=== PATIENT | female | born 1955 | race Caucasian/White ===

== ENCOUNTER 2017-04-14 21:29 | Emergency (ER) | payer BC ==
[~2017-04-14] VITALS: Ht 172.7 cm; Wt 85.7 kg
[~2017-04-14 21:29] MED LIST: CLOR7.5T43 PO; SERT100T PO
[2017-04-14 22:00] LABS: BASO % 1 % (0-3); EOS % 3 % (0-3); HEMATOCRIT 37.9 % (36.0-47.0); HEMOGLOBIN 13.1 g/dL (12.0-15.5); LYMPH # 2.4 x10^3/uL (1.0-4.8); LYMPH % 51 % (24-48); MEAN CORPUSCULAR HEMOGLOBIN 34 pg (25-35); MEAN CORPUSCULAR HGB CONC 35 g/dL (31-37); MEAN CORPUSCULAR VOLUME 100 fL (79-100); MONO % 12 % (0-9); NEUT % 34 % (31-73); PLATELET COUNT 209 x10^3/uL (140-400); RED BLOOD COUNT 3.81 x10^6/uL (3.50-5.40); RED CELL DISTRIBUTION WIDTH 12.2 % (11.5-14.5); WHITE BLOOD COUNT 4.7 x10^3/uL (4.0-11.0)
[2017-04-14] MEDS ORDERED: NITROGLYCERIN SUBLINGUAL 0.4 MG BOTTLE OF 25. SL PRN (22:00)
[2017-04-14] MEDS ORDERED: ASPIRIN CHEWABLE 81 MG TABLET. PO ONE (22:00)
[2017-04-14] MEDS ORDERED: fentaNYL PF VIAL 100 MCG/2 ML VIAL IV PRN (22:00)
[2017-04-14 22:13] LABS: CREATININE 0.9 mg/dL (0.6-1.0); GFR 63.9; POTASSIUM 3.8 mmol/L (3.5-5.1)
[2017-04-14 22:19] LABS: ALBUMIN 4.1 g/dL (3.4-5.0); DIRECT BILIRUBIN 0.1 mg/dL (0.0-0.2); TOTAL BILIRUBIN 0.2 mg/dL (0.2-1.0); TOTAL PROTEIN 7.3 g/dL (6.4-8.2)
[2017-04-14 23:35] LABS: BARBITURATES NEG (NEG); BENZODIAZEPINES NEG (NEG); CANNABINOIDS NEG (NEG); COCAINE NEG (NEG); METHADONE NEG (NEG); OPIATES NEG (NEG); PHENCYCLIDINE NEG (NEG)
--- NOTE | 2017-04-15 00:08 | ED.ADGEN ---
Past Medical History Past Medical History: Depression, Other Additional Past Medical Histor: MAJOR DEPPRESSIVE DISORDER Past Surgical History: Tonsillectomy Alcohol Use: Occasionally Drug Use: None Adult General Chief Complaint Chief Complaint: CHEST PAIN-CARDIAC NATURE HPI HPI Patient is a 62 year old woman, history of anxiety, depression, who was placed on propanolol in mid March due to akathisia, who presents emergency Department with complaint of chest tightness and chest pressure since this morning. Patient states that she's had this symptom previously, but has not previously sought evaluation. She states that she had a cardiac evaluation including a stress test 10 years ago, has not seen a pr intern since that time. She denies any family history of cardiac disease, states that she follow up with Dr. Javier, and that her psychiatrist put her on propanolol several weeks ago, which she has been taking along with other medications as directed. She denies any suicidal homicidal ideation, states that she began experiencing the pain described as a pressure earlier this morning it is been constant since that time. She states she became more worried about the pain as the time went on. She states that she is not having some pain in her upper back. Denies any shortness of breath, any diaphoresis, states she had one episode of nausea after taking her plantar law, which she states is typical after taking this medication. She denies any weakness, any numbness, states that she had some tingling in her fingertips, which again to 70 she expresses with taking propanolol. No headache, no vision changes, no near-syncope or syncopal event. No swelling extremities, no recent travel or surgery, history of DVT or PE in herself or family members. Patient states that she took a Klonopin shortly before coming to the ED, and is now feeling better. Review of Systems Review of Systems Constitutional: Denies fever or chills. [] Eyes: Denies change in visual acuity. [] HENT: Denies nasal congestion or sore throat. [] Respiratory: Denies cough or shortness of breath. [] Cardiovascular: Midsternal chest pressure, no edema, pain is now in the mid back. GI: Denies abdominal pain, nausea, vomiting, bloody stools or diarrhea. [] : Denies dysuria. [] Musculoskeletal: Denies back pain or joint pain. [] Integument: Denies rash. [] Neurologic: Denies headache, focal weakness or sensory changes. [] Endocrine: Denies polyuria or polydipsia. [] Lymphatic: Denies swollen glands. [] Psychiatric: Denies depression or anxiety. [] Current Medications Current Medications Current Medications Medications (Trade) Dose Ordered Sig/Sudeep Start Time Stop Time Status Last Admin Dose Admin Aspirin (Children'S Aspirin) 324 mg 1X ONCE 04/14/17 22:00 04/14/17 22:01 DC 04/14/17 22:47 324 MG Fentanyl Citrate (Fentanyl 2ml Vial) 25 mcg PRN Q15MIN PRN 04/14/17 22:00 04/15/17 01:02 DC Nitroglycerin (Nitrostat) 0.4 mg PRN Q5MIN PRN 04/14/17 22:00 04/15/17 01:02 DC Allergies Allergies Allergies Coded Allergies Type Severity Reaction Last Updated Verified Sulfa (Sulfonamide Antibiotics) Allergy Unknown Hives 04/07/14 Yes Physical Exam Physical Exam Constitutional: Well developed, well nourished, no acute distress, non-toxic appearance. [] HENT: Normocephalic, atraumatic, bilateral external ears normal, oropharynx moist, no oral exudates, nose normal. [] Eyes: PERRLA, EOMI, conjunctiva normal, no discharge. [] Neck: Normal range of motion, no tenderness, supple, no stridor. [] Cardiovascular:Heart rate regular rhythm, no murmur [] Lungs & Thorax: Bilateral breath sounds clear to auscultation [] Abdomen: Bowel sounds normal, soft, no tenderness, no masses, no pulsatile masses. [] Skin: Warm, dry, no erythema, no rash. [] Back: No tenderness, no CVA tenderness. [] Extremities: No tenderness, no cyanosis, no clubbing, ROM intact, no edema. [] Neurologic: Alert and oriented X 3, normal motor function, normal sensory function, no focal deficits noted. [] Psychologic: Affect normal, judgement normal, mood normal. [] Current Patient Data Vital Signs Vital Signs Date Time Temp Pulse Resp B/P (MAP) Pulse Ox O2 Delivery O2 Flow Rate FiO2 04/15/17 00:30 73 18 118/70 (86) 97 Room Air 04/14/17 21:33 98.0 98.0 Lab Values Laboratory Tests Test 04/14/17 21:45 04/14/17 23:15 04/14/17 23:40 White Blood Count 4.7 x10^3/uL (4.0-11.0) Red Blood Count 3.81 x10^6/uL (3.50-5.40) Hemoglobin 13.1 g/dL (12.0-15.5) Hematocrit 37.9 % (36.0-47.0) Mean Corpuscular Volume 100 fL (79-100) Mean Corpuscular Hemoglobin 34 pg (25-35) Mean Corpuscular Hemoglobin Concent 35 g/dL (31-37) Red Cell Distribution Width 12.2 % (11.5-14.5) Platelet Count 209 x10^3/uL (140-400) Neutrophils (%) (Auto) 34 % (31-73) Lymphocytes (%) (Auto) 51 % (24-48) H Monocytes (%) (Auto) 12 % (0-9) H Eosinophils (%) (Auto) 3 % (0-3) Basophils (%) (Auto) 1 % (0-3) Neutrophils # (Auto) 1.6 x10^3uL (1.8-7.7) L Lymphocytes # (Auto) 2.4 x10^3/uL (1.0-4.8) Monocytes # (Auto) 0.5 x10^3/uL (0.0-1.1) Eosinophils # (Auto) 0.1 x10^3/uL (0.0-0.7) Basophils # (Auto) 0.0 x10^3/uL (0.0-0.2) Sodium Level 141 mmol/L (136-145) Potassium Level 3.8 mmol/L (3.5-5.1) Chloride Level 104 mmol/L (98-107) Carbon Dioxide Level 29 mmol/L (21-32) Anion Gap 8 (6-14) Blood Urea Nitrogen 13 mg/dL (7-20) Creatinine 0.9 mg/dL (0.6-1.0) Estimated GFR (Cockcroft-Gault) 63.9 Glucose Level 79 mg/dL (70-99) Calcium Level 9.0 mg/dL (8.5-10.1) Total Bilirubin 0.2 mg/dL (0.2-1.0) Direct Bilirubin 0.1 mg/dL (0.0-0.2) Aspartate Amino Transferase (AST) 19 U/L (15-37) Alanine Aminotransferase (ALT) 26 U/L (14-59) Alkaline Phosphatase 94 U/L (46-116) Troponin I Quantitative < 0.017 ng/mL (0.000-0.055) LC-Zxm-T-Type Natriuretic Peptide 36 pg/mL (0-124) Total Protein 7.3 g/dL (6.4-8.2) Albumin 4.1 g/dL (3.4-5.0) Lipase 144 U/L (73-393) Urine Opiates Screen Neg (NEG) Urine Methadone Screen Neg (NEG) Urine Barbiturates Neg (NEG) Urine Phencyclidine Screen Neg (NEG) Urine Amphetamine/Methamphetamine Neg (NEG) Urine Benzodiazepines Screen Neg (NEG) Urine Cocaine Screen Neg (NEG) Urine Cannabinoids Screen Neg (NEG) Urine Ethyl Alcohol Neg (NEG) POC Troponin I 0.00 ng/ml (<0.08) Laboratory Tests 04/14/17 21:45 Laboratory Tests 04/14/17 21:45 EKG EKG EC: Sinus rhythm, heart rate 70 beats minute, upright axis, QTC of 407, [place] 160, QRS of 84, contour abnormalities is noted in the anterior septal leads, T-wave inversions noted in leads 3 and flattening in V2. Abnormal ECG, does not meet STEMI criteria. No prior for comparison. As interpreted by me. [] Radiology/Procedures Radiology/Procedures Chest x-ray: One view: Normal cardiopulmonary silhouette, no infiltrates, no effusions, no pneumothorax, no soft tissue or bony abnormalities identified. As interpreted by me. [] Course & Med Decision Making Course & Med Decision Making Pertinent Labs and Imaging studies reviewed. (See chart for details) Patient's pain is been constant since early this morning. She states that is currently located in her back, states that it is now "not really a pain" since she took the Klonopin, more of a "tightness", located in her mid upper back. She denies any associated symptoms, aside from an episode of nausea shortly after taking propranolol this morning, she states is consistent with every time states the medication. Patient is agreeable to evaluation in the emergency department, including x-ray, ECG, laboratory studies. Patient states that she will not be able to stay and be admitted to the hospital for additional evaluation, as she has "things any to do". On reevaluation, after receiving aspirin, patient states she is feeling much better. She states she is no longer expressing any pain. I discussed patient's laboratory studies, she has received an initial troponin was negative, and then a secondary i-STAT troponin in the ED , after 2 hours of observation was also unremarkable. No other concerning findings were identified. I did discuss with her that her ECG is not entirely normal, and that I do recommend admission for additional evaluation, as I cannot rule out atypical chest pain of cardiac nature, however patient states that she is still unable to stay, and after discussion states she will be able to follow-up promptly in the outpatient setting. Patient was therefore given contact information for Dr. Fuller of cardiology, and instructed to contact his office tomorrow morning to schedule prompt follow-up. She was also given clear and detailed return instructions with which she voiced understanding and agreement. Instructed to use aspirin daily, to follow-up as directed, to return for concerning symptoms as discussed, discharged home in stable condition, asymptomatic with plan as above. Dragon Disclaimer Dragon Disclaimer This electronic medical record was generated, in whole or in part, using a voice recognition dictation system. Departure Impression: Primary Impression: Chest pain in adult Disposition: 01 HOME, SELF-CARE Condition: IMPROVED LEIF BARNHART DO Apr 15, 2017 00:08
[2017-04-15 00:30] VITALS: BP 118/70
--- NOTE | 2017-04-15 06:08 | EKG ---
[facility] [address] [place] [address] Test Date: 2017-04-14 Test Time: 21:36:16 Pat Name: SANTOSH WANG Department: Room: Gender: F Mill Hand: : 1955 Requested By: LEIF BARNHART Order Number: [id number] Reading MD: Measurements Intervals [place] Rate: 70 P: 83 [place]: 160 QRS: 30 QRSD: 84 T: 38 QT: 374 QTc: 407 Interpretive Statements SINUS RHYTHM QRS(T) CONTOUR ABNORMALITY CONSIDER ANTEROSEPTAL MYOCARDIAL DAMAGE RI6.01 Unconfirmed report No previous ECG available for comparison
--- NOTE | 2017-04-15 08:07 | RAD ---
Indication tightness in the chest. PA and lateral views of the chest were obtained. Comparison is made to a previous examination 09/23/2012. There are background changes suggesting emphysema. The lungs are clear of acute infiltrates. Significant pleural fluid is not seen and there is no pneumothorax. There has not been, overall, a significant change when compared to the previous exam. IMPRESSION: No acute or focal process. No significant change
== END 2017-04-15 00:40 | disposition home or self-care (01) ==
LOC: ER 21:29
DX: R07.89 Other chest pain (principal); M54.6 Pain in thoracic spine; R11.0 Nausea; F32.9 Major depressive disorder, single episode, unspecified; F41.9 Anxiety disorder, unspecified; Z79.82 Long term (current) use of aspirin; Z88.2 Allergy status to sulfonamides
CPT/HCPCS: 36415; 71020; 80048; 80076; 80305; 80320; 83690; 83880; 84484; 85027; 93005; G0481; 99285-25

== ENCOUNTER 2017-12-05 02:34 | Emergency (ER) | payer OTHER, BC | END 2017-12-05 03:25 | disposition home or self-care (01) | LOC: ER 02:34 | DX: T50.901A Poisoning by unspecified drugs, medicaments and biological substances, accidental (unintentional), initial encounter (principal); F41.0 Panic disorder [episodic paroxysmal anxiety]; F32.9 Major depressive disorder, single episode, unspecified; Z88.2 Allergy status to sulfonamides; Y92.89 Other specified places as the place of occurrence of the external cause | CPT/HCPCS: 93005; 99283-25 ==

== ENCOUNTER 2018-01-31 04:03 | Emergency (ER) | payer OTHER ==
[2018-01-31 05:09] LABS: ADD MAN DIFF? NO
[2018-01-31 05:20] LABS: BASO # 0.1 x10^3/uL (0.0-0.2); BASO % 1 % (0-3); EOS # 0.2 x10^3/uL (0.0-0.7); EOS % 4 % (0-3); HEMATOCRIT 41.5 % (36.0-47.0); HEMOGLOBIN 14.7 g/dL (12.0-15.5); LYMPH % 46 % (24-48); MEAN CORPUSCULAR HEMOGLOBIN 35 pg (25-35); MEAN CORPUSCULAR HGB CONC 35 g/dL (31-37); MEAN CORPUSCULAR VOLUME 100 fL (79-100); MONO # 0.5 x10^3/uL (0.0-1.1); MONO % 12 % (0-9); NEUT # 1.6 x10^3uL (1.8-7.7); NEUT % 37 % (31-73); PLATELET COUNT 228 x10^3/uL (140-400); RED BLOOD COUNT 4.17 x10^6/uL (3.50-5.40); WHITE BLOOD COUNT 4.3 x10^3/uL (4.0-11.0)
[2018-01-31 05:22] LABS: BILIRUBIN,URINE NEGATIVE (NEG); CLARITY,URINE CLEAR; COLOR,URINE YELLOW; GLUCOSE,URINE NEGATIVE (NEG); NITRITE,URINE NEGATIVE (NEG); PH,URINE 6.5; PROTEIN,URINE NEGATIVE (NEG-TRACE); UROBILINOGEN,URINE 0.2 mg/dL (0.2 mg/dL)
[2018-01-31 05:23] LABS: SQUAMOUS EPITHELIAL CELL,UR FEW /LPF
[2018-01-31 05:24] LABS: BACTERIA,URINE FEW /HPF (0-FEW)
[2018-01-31 05:27] LABS: ANION GAP 10 (6-14); BLOOD UREA NITROGEN 10 mg/dL (7-20); BUN/CREATININE RATIO 10 (6-20); CARBON DIOXIDE 28 mmol/L (21-32); CHLORIDE 104 mmol/L (98-107); GFR 56.6; GLUCOSE 102 mg/dL (70-99); POTASSIUM 3.9 mmol/L (3.5-5.1); SODIUM 142 mmol/L (136-145)
[2018-01-31 05:32] LABS: ALBUMIN 4.3 g/dL (3.4-5.0); ALBUMIN/GLOBULIN RATIO 1.3 (1.0-1.7); ALK PHOS 107 U/L (46-116); ALT (SGPT) 27 U/L (14-59); AST (SGOT) 20 U/L (15-37); LIPASE 158 U/L (73-393); TOTAL BILIRUBIN 0.4 mg/dL (0.2-1.0); TOTAL PROTEIN 7.5 g/dL (6.4-8.2)
[2018-01-31 05:35] LABS: TROPONINI < 0.017 ng/mL (0.000-0.055)
== END 2018-01-31 06:38 | disposition home or self-care (01) ==
LOC: ER 04:03
DX: R07.89 Other chest pain (principal); R42 Dizziness and giddiness; K21.9 Gastro-esophageal reflux disease without esophagitis; Z88.2 Allergy status to sulfonamides
CPT/HCPCS: 36415; 71045; 80053; 81001; 83690; 84484; 85025; 87086; 93005; 99285-25

== ENCOUNTER 2019-06-28 23:23 | Emergency (ER) | payer OTHER ==
[~2019-06-28] VITALS: Ht 170.2 cm; Wt 63.0 kg
--- NOTE | 2019-06-29 00:08 | PHYS DOC ---
Past Medical History Past Medical History: Depression, Other Additional Past Medical Histor: MAJOR DEPPRESSIVE DISORDER Past Surgical History: Tonsillectomy Alcohol Use: Occasionally Drug Use: None Adult General Chief Complaint Chief Complaint: ALLERGIC REACTION HPI HPI Patient is a 64 year old female who presents stating that she was at [employer] around 3:00 this afternoon and her back started itching and feeling like it was on fire. She then states that around 7:00 this evening she started feeling like her throat was swelling. Denies any pain, denies shortness of breath, denies any other complaints. Review of Systems Review of Systems Constitutional: Denies fever or chills [] Eyes: Denies change in visual acuity, redness, or eye pain [] HENT: Denies nasal congestion or sore throat [] Respiratory: Denies cough or shortness of breath [] Cardiovascular: No additional information not addressed in HPI [] GI: Denies abdominal pain, nausea, vomiting, bloody stools or diarrhea [] : Denies dysuria or hematuria [] Musculoskeletal: Denies back pain or joint pain [] Integument: Reports her back is itching. Neurologic: Denies headache, focal weakness or sensory changes [] Endocrine: Denies polyuria or polydipsia [] Complete systems were reviewed and found to be within normal limits, except as documented in this note. Allergies Allergies Allergies Coded Allergies Type Severity Reaction Last Updated Verified Sulfa (Sulfonamide Antibiotics) Allergy Unknown Hives 04/07/14 Yes Physical Exam Physical Exam Constitutional: Well developed, well nourished, no acute distress, non-toxic appearance. [] HENT: Normocephalic, atraumatic, bilateral external ears normal, oropharynx moist, no oral exudates, tonsils are 1+/4, uvula midline, nose normal. [] Eyes: PERRLA, EOMI, conjunctiva normal, no discharge. [] Neck: Normal range of motion, no tenderness, supple, no stridor. [] Cardiovascular:Heart rate regular rhythm, no murmur [] Lungs & Thorax: Bilateral breath sounds clear to auscultation [] Abdomen: Bowel sounds normal, soft, no tenderness, no masses, no pulsatile masses. [] Skin: Warm, dry, no erythema, has area on her back that she has scratched with a hair brush.[] Back: No tenderness, no CVA tenderness. [] Extremities: No tenderness, no cyanosis, no clubbing, ROM intact, no edema. [] Neurologic: Alert and oriented X 3, normal motor function, normal sensory function, no focal deficits noted. [] Psychologic: Affect normal, judgement normal, mood normal. [] EKG EKG [] Radiology/Procedures Radiology/Procedures [] Course & Med Decision Making Course & Med Decision Making Pertinent Labs and Imaging studies reviewed. (See chart for details) Will give Benadryl, Pepcid, and Decadron and D/c home. Dragon Disclaimer Dragon Disclaimer This electronic medical record was generated, in whole or in part, using a voice recognition dictation system. Departure Departure Impression: Primary Impression: Itching Disposition: HOME, SELF-CARE Condition: STABLE Referrals: VINCE TAVERAS MD (PCP) Patient Instructions: Itching-Brief Additional Instructions: Thank you for visiting [facility]. We appreciate you trusting us with your care. If any additional problems come up don't hesitate to return to visit us. Please follow up with your primary care provider so they can plan additional care if needed and know about the problem that you had. If symptoms worsen come back to the Emergency Department. Any concerning symptoms that start such as chest pain, shortness of air, weakness or numbness on one side of the body, running high fevers or any other concerning symptoms return to the ER. JENNIFER ROME APRN Jun 29, 2019 00:08
[2019-06-29 00:27] VITALS: BP 111/69
[2019-06-29] MEDS ORDERED: diphenhydrAMINE HCL 25 MG CAPSULE PO ONE (00:30)
[2019-06-29] MEDS ORDERED: FAMOTIDINE 20 MG TABLET. PO ONE (00:30)
[2019-06-29] MEDS ORDERED: DEXAMETHASONE 4 MG TABLET PO ONE (00:30)
== END 2019-06-29 00:17 | disposition home or self-care (01) ==
LOC: ER 23:23
DX: L29.9 Pruritus, unspecified (principal); F32.9 Major depressive disorder, single episode, unspecified; Z90.89 Acquired absence of other organs; Z88.2 Allergy status to sulfonamides
CPT/HCPCS: 99284; J8540; Q0163

== ENCOUNTER 2020-06-07 08:31 | Emergency (ER) | payer OTHER ==
[~2020-06-07] VITALS: Ht 170.2 cm; Wt 70.5 kg
[2020-06-07 09:09] LABS: BASO % 1 % (0-3); EOS # 0.1 x10^3/uL (0.0-0.7); EOS % 1 % (0-3); HEMATOCRIT 37.5 % (36.0-47.0); LYMPH % 17 % (24-48); MEAN CORPUSCULAR HEMOGLOBIN 35 pg (25-35); MEAN CORPUSCULAR HGB CONC 35 g/dL (31-37); MEAN CORPUSCULAR VOLUME 101 fL (79-100); MONO # 0.5 x10^3/uL (0.0-1.1); MONO % 8 % (0-9); NEUT # 4.6 x10^3/uL (1.8-7.7); NEUT % 74 % (31-73); PLATELET COUNT 206 x10^3/uL (140-400); RED BLOOD COUNT 3.72 x10^6/uL (3.50-5.40); RED CELL DISTRIBUTION WIDTH 12.4 % (11.5-14.5); WHITE BLOOD COUNT 6.2 x10^3/uL (4.0-11.0)
[2020-06-07 09:12] LABS: BILIRUBIN,URINE NEGATIVE (NEG); CLARITY,URINE CLEAR; COLOR,URINE YELLOW; NITRITE,URINE NEGATIVE (NEG); PROTEIN,URINE NEGATIVE (NEG-TRACE); UROBILINOGEN,URINE 0.2 mg/dL (0.2 mg/dL)
[2020-06-07] MEDS ORDERED: IV NORMAL SALINE 1000ML BAG 1,000 ML IV ONE (09:15)
[2020-06-07 09:21] LABS: PROTHROMBIN TIME PATIENT 12.4 SEC (11.7-14.0)
[2020-06-07 09:23] LABS: CALCIUM 9.1 mg/dL (8.5-10.1); POTASSIUM 3.1 mmol/L (3.5-5.1)
[2020-06-07 09:26] LABS: BACTERIA,URINE 0 /HPF (0-FEW); RBC,URINE 0 /HPF (0-2); SQUAMOUS EPITHELIAL CELL,UR OCC /LPF; WBC,URINE RARE /HPF (0-4)
--- NOTE | 2020-06-07 09:27 | PHYS DOC ---
Past Medical History Past Medical History: Depression, GERD, Other Additional Past Medical Histor: MAJOR DEPPRESSIVE DISORDER Past Surgical History: Tonsillectomy Smoking Status: Never Smoker Alcohol Use: Occasionally Drug Use: None General Adult EDM: Chief Complaint: ABDOMINAL PAIN HPI: HPI: 65-year-old female presents the emergency department for abdominal pain that began at 10:00 last night. There is nothing that brought on the event, no trauma, not associate with any food, not associated with urination or defecation. The patient has had a sudden onset of pain in the lower left quadrant that radiates to her left flank. The area is not tender upon palpation, but the patient describes the pain as a constant pressure. Also patient states that the pain is intermittent in nature. The patient was able to sleep through the night without issues but did wake up at 530 this morning with worse pain in the left lower quadrant. She rates the pain at 6 out of 10. In the emergency department right now it is currently minimally painful in the left lower quadrant. The patient does have chronic gastritis which has had for 3 years and she follows up with a GI specialist and her family medicine doctor. She has not taken any medication for the pain. She has not found anything that makes the pain worse or alleviates the pain. She has not experienced pain in this area before with this type of presentation. Review of Systems: Review of Systems: Constitutional: Denies fever or chills Eyes: Denies redness or eye pain HENT: Denies nasal congestion or sore throat Respiratory: Denies cough or shortness of breath Cardiovascular: Denies chest pain or palpitations GI: Denies nausea, or vomiting. Reports lower left quadrant abdominal pain : Denies dysuria or hematuria Musculoskeletal: Denies back pain or joint pain Integument: Denies rash or skin lesions Neurologic: Denies headache, focal weakness or sensory changes Complete systems were reviewed and found to be within normal limits, except as documented in this note. Current Medications: Current Medications Medications (Trade) Dose Ordered Sig/Sudeep Start Time Stop Time Status Last Admin Dose Admin Sodium Chloride 1,000 ml @ 1,000 mls/hr 1X ONCE 06/07/20 09:15 06/07/20 10:14 06/07/20 09:15 1,000 MLS/HR Allergies: Allergies: Allergies Coded Allergies Type Severity Reaction Last Updated Verified Sulfa (Sulfonamide Antibiotics) Allergy Intermediate Hives 06/29/19 Yes Physical Exam: PE: Constitutional: Well developed, well nourished, no acute distress, non-toxic appearance HENT: Normocephalic, atraumatic Eyes: PERRL, EOMI, conjunctiva normal, no discharge Neck: Normal range of motion, no tenderness, supple Lungs & Thorax: Bilateral equal rise and fall of chest. No acute respiratory distress Abdomen: Soft, no tenderness. No bruising or erythema noted Skin: Warm, dry, no erythema, no rash Back: No tenderness, no CVA tenderness Extremities: No tenderness, ROM intact, no edema Neurologic: Alert and oriented X 3, normal motor function, normal sensory function, no focal deficits noted Psychologic: Affect normal, judgment normal Current Patient Data: Labs: Laboratory Tests Test 06/07/20 08:55 White Blood Count 6.2 x10^3/uL (4.0-11.0) Red Blood Count 3.72 x10^6/uL (3.50-5.40) Hemoglobin 13.0 g/dL (12.0-15.5) Hematocrit 37.5 % (36.0-47.0) Mean Corpuscular Volume 101 fL (79-100) H Mean Corpuscular Hemoglobin 35 pg (25-35) Mean Corpuscular Hemoglobin Concent 35 g/dL (31-37) Red Cell Distribution Width 12.4 % (11.5-14.5) Platelet Count 206 x10^3/uL (140-400) Neutrophils (%) (Auto) 74 % (31-73) H Lymphocytes (%) (Auto) 17 % (24-48) L Monocytes (%) (Auto) 8 % (0-9) Eosinophils (%) (Auto) 1 % (0-3) Basophils (%) (Auto) 1 % (0-3) Neutrophils # (Auto) 4.6 x10^3/uL (1.8-7.7) Lymphocytes # (Auto) 1.0 x10^3/uL (1.0-4.8) Monocytes # (Auto) 0.5 x10^3/uL (0.0-1.1) Eosinophils # (Auto) 0.1 x10^3/uL (0.0-0.7) Basophils # (Auto) 0.0 x10^3/uL (0.0-0.2) Laboratory Tests 06/07/20 08:55 Vital Signs: Vital Signs Date Time Temp Pulse Resp B/P (MAP) Pulse Ox O2 Delivery O2 Flow Rate FiO2 06/07/20 08:50 98.4 87 16 129/78 (95) 100 Room Air 98.4 EKG: EKG: [] Radiology/Procedures: Radiology/Procedures: Examination: CT of the abdomen pelvis with IV contrast HISTORY: History of left lower quadrant abdominal pain COMPARISON: None available Technique: Axial CT images of the abdomen pelvis were performed with IV contrast. Coronal and sagittal reformats are performed Exposure: One or more of the following individualized dose reduction techniques were utilized for this examination: 1. Automated exposure control 2. Adjustment of the mA and/or kV according to patient size 3. Use of iterative reconstruction technique FINDINGS: The bibasilar lungs are clear. No evidence of free air identified in the abdomen. The visualized liver, spleen, adrenals grossly appears unremarkable. The gallbladder is mildly distended. The stomach is mildly distended. The visualized pancreas grossly appears unremarkable. The small bowel is nondilated. The appendix is normal. Feces and gas noted in the colon. There is mild thickened appearance of the wall of the descending colon with minimal surrounding fat stranding probably mild colitis. The urinary bladder is mildly distended. The bilateral kidneys enhance symmetrically. Mild degenerative changes lumbar spine IMPRESSION: 1. Mild thickened appearance of the wall of the descending colon with surrounding fat stranding likely mild colitis. Electronically signed by: Bradley Singh MD (06/07/2020 10:06 AM) [id number] Course & Med Decision Making: Course & Med Decision Making 65-year-old female presents the emergency department for left lower quadrant elevate having it at 10:00 last night. The pain began to worsen at 5:30 AM today. She drove to the emergency department today because she was worried about her abdominal pain and the constipation she is to the left lower quadrant. She is on omeprazole as well as sucralfate for her gastritis. She recently began superficially and increase her dose of omeprazole. Patient has no past medical history of diverticulitis or other abdominal surgeries. Patient physical exam was benign, with no tenderness to palpation of the left lower quadrant or left lower flank. Because of presentation of pain and history of chronic gastritis, lab work was done for CBC, CMP. CT of the abdomen and pelvis was also taken. Lab work came back within normal limits. CT of abdomen pelvis showed colitis in the descending colon. Results were discussed with patient. Patient was prescribed Flagyl and Cipro for her colitis. Patient is recommended to follow-up with her GI doctor in the next 3 days. Patient did not want any medication for pain or discomfort. Patient stable for discharge with outpatient follow-up with PCP. Discussed findings and plan with patient, who acknowledges understanding and agreement. Ayanna Disclaimer: Ayanna Disclaimer: This electronic medical record was generated, in whole or in part, using a voice recognition dictation system. Departure Departure Impression: Primary Impression: Colitis Disposition: HOME, SELF-CARE Condition: STABLE Referrals: VINCE TAVERAS MD (PCP) Patient Instructions: Colitis Additional Instructions: Use bland diet. Take [id number] pain medication as needed. Follow closely with your GI physician. Scripts Ciprofloxacin Hcl (CIPRO) 500 Mg Tablet 1 TAB PO BID, #14 TAB Prov: JENNIFER FOSTER DO 06/07/20 Metronidazole (FLAGYL) 500 Mg Tablet 500 MG PO TID, #21 TAB Prov: JENNIFER FOSTER DO 06/07/20 Justicifation of Admission Dx: Justifications for Admission: Justification of Admission Dx: N/A JENNIFER FOSTER DO Jun 07, 2020 09:27
[2020-06-07 09:29] LABS: ALBUMIN 4.1 g/dL (3.4-5.0); ALBUMIN/GLOBULIN RATIO 1.1 (1.0-1.7); MAGNESIUM 2.2 mg/dL (1.8-2.4); TOTAL BILIRUBIN 0.5 mg/dL (0.2-1.0); TOTAL PROTEIN 7.7 g/dL (6.4-8.2)
[2020-06-07] MEDS ORDERED: IOHEXOL 300 MG/ML 100ML VIAL. IV ONE (09:45)
[2020-06-07] MEDS ORDERED: CONTRAST GIVEN. MC PRN (09:45)
--- NOTE | 2020-06-07 10:09 | RAD ---
Examination: CT of the abdomen pelvis with IV contrast HISTORY: History of left lower quadrant abdominal pain COMPARISON: None available Technique: Axial CT images of the abdomen pelvis were performed with IV contrast. Coronal and sagittal reformats are performed Exposure: One or more of the following individualized dose reduction techniques were utilized for this examination: 1. Automated exposure control 2. Adjustment of the mA and/or kV according to patient size 3. Use of iterative reconstruction technique FINDINGS: The bibasilar lungs are clear. No evidence of free air identified in the abdomen. The visualized liver, spleen, adrenals grossly appears unremarkable. The gallbladder is mildly distended. The stomach is mildly distended. The visualized pancreas grossly appears unremarkable. The small bowel is nondilated. The appendix is normal. Feces and gas noted in the colon. There is mild thickened appearance of the wall of the descending colon with minimal surrounding fat stranding probably mild colitis. The urinary bladder is mildly distended. The bilateral kidneys enhance symmetrically. Mild degenerative changes lumbar spine IMPRESSION: 1. Mild thickened appearance of the wall of the descending colon with surrounding fat stranding likely mild colitis. Electronically signed by: Bradley Singh MD (06/07/2020 10:06 AM) [place] [id number]
[2020-06-07] MEDS ORDERED: CIPROFLOXACIN HCL 250 MG TABLET. PO ONE (10:15)
[2020-06-07] MEDS ORDERED: metroNIDAZOLE 500 MG TABLET PO ONE (10:15)
[2020-06-07 10:29] VITALS: BP 127/71
[2020-06-07] MEDS ORDERED: METR500T PO (10:40)
[2020-06-07] MEDS ORDERED: CIPR500T94 PO (10:40)
== END 2020-06-07 10:46 | disposition home or self-care (01) ==
LOC: ER 08:31
DX: K52.9 Noninfective gastroenteritis and colitis, unspecified (principal); R10.32 Left lower quadrant pain; K21.9 Gastro-esophageal reflux disease without esophagitis; F32.9 Major depressive disorder, single episode, unspecified; Z90.89 Acquired absence of other organs; Z88.2 Allergy status to sulfonamides
CPT/HCPCS: 36415; 74177; 80053; 81001; 83690; 83735; 85025; 85610; 85730; 96360; 99285; J7030; Q9967

== ENCOUNTER 2021-08-29 14:20 | Emergency (ER) | payer OTHER ==
[~2021-08-29] VITALS: Ht 170.2 cm; Wt 73.2 kg
[~2021-08-29 14:20] MED LIST changes: +CIPR500T94 PO; +METR500T PO
--- NOTE | 2021-08-29 14:53 | PHYS DOC ---
Past Medical History Past Medical History: Depression, GERD, Other Additional Past Medical Histor: MAJOR DEPPRESSIVE DISORDER Past Surgical History: Tonsillectomy Smoking Status: Never Smoker Alcohol Use: Occasionally Drug Use: None General Adult EDM: Chief Complaint: SHORTNESS OF BREATH HPI: HPI: Patient is a 66-year-old female who presents emergency department for shortness of breath that started this afternoon. Patient reports that she is unsure if this is a panic attack although her panic attacks have not been this severe. She reports that she has been fatigued all day. She denies nausea, vomiting, abdominal pain, fevers, cough symptoms sick exposure. She has experienced left- sided rib pain that is worse with movement. No treatment for her symptoms prior to arrival. Patient has a history of GERD, anxiety and depression. She is vaccinated for COVID-19. Review of Systems: Review of Systems: Constitutional: See HPI Respiratory: See HPI Cardiovascular: See HPI GI: See HPI Musculoskeletal: See HPI Neurologic: See HPI Heart Score: C/O Chest Pain: No (l. sided rib pain with movement) HEART Score for Chest Pain: HEART Score for Chest Pain Response (Comments) Value ECG Normal 0 Age >45 - < 65 1 Risk Factors No Risk Factors 0 Troponin < Normal Limit 0 Total 1 Risk Factors: Risk Factors: DM, Current or recent (<one month) smoker, HTN, HLP, family history of CAD, obesity. Risk Scores: Score 0 - 3: 2.5% MACE over next 6 weeks - Discharge Home Score 4 - 6: 20.3% MACE over next 6 weeks - Admit for Clinical Observation Score 7 - 10: 72.7% MACE over next 6 weeks - Early Invasive Strategies Allergies: Allergies: Allergies Coded Allergies Type Severity Reaction Last Updated Verified Sulfa (Sulfonamide Antibiotics) Allergy Intermediate Hives 06/29/19 Yes Physical Exam: PE: Constitutional: Well developed, well nourished, no acute distress, non-toxic appearance. [] HENT: Normocephalic, atraumatic, bilateral external ears normal, oropharynx moist, no oral exudates, nose normal. [] Eyes: PERRL, EOMI, conjunctiva normal, no discharge. [] Neck: Normal range of motion, no tenderness, supple, no stridor. [] Cardiovascular:Heart rate tachycardic rhythm, no murmur [] Lungs & Thorax: Bilateral breath sounds clear to auscultation [] Abdomen: Bowel sounds normal, soft, no tenderness, no masses, no pulsatile masses. [] Skin: Warm, dry, no erythema, no rash. [] Back: normal ROM Extremities: No tenderness, no cyanosis, no clubbing, ROM intact, no edema. [] Neurologic: Alert and oriented X 3, normal motor function, normal sensory function, no focal deficits noted. [] Psychologic: Affect normal, judgement normal, mood normal. [] EKG: EKG: [] EKG performed by ER staff at 1449 shows sinus tachycardia with a rate of 102, QTc of 513, no STEMI read by Dr. Abdullahi at 1451. Radiology/Procedures: Radiology/Procedures: []PROCEDURE: PORTABLE CHEST 1V EXAMINATION: Chest radiograph. VIEWS: Single AP view of the chest COMPARISON: 01/31/2018 INDICATION:66 years, Female, shortness of air. FINDINGS: Normal cardiomediastinal silhouette. No focal consolidation. No pleural effusion or pneumothorax. No acute osseous process. IMPRESSION: No acute cardiopulmonary process. Electronically signed by: Balwinder Nichols DO (08/29/2021 3:10 PM) [facility] DICTATED and SIGNED BY: BALWINDER NICHOLS DO DATE: 08/29/21 [id number] 0 Course & Med Decision Making: Course & Med Decision Making Pertinent Labs and Imaging studies reviewed. (See chart for details) [] Patient presents to the emergency department for shortness of breath that started this. Work-up in the ER consisted of blood work, EKG, chest x-ray. Blood work unremarkable, negative D-dimer, negative troponin. Patient's heart rate has improved to 87 bpm. VSS, patient is non labored. Chest x-ray unremarkable. Patient is Covid test in the ER was notified of the results may become available. Patient advised to self isolate until she receives his results. I discussed with patient all findings and diagnostic testing as well as the need to follow-up with PCP for further evaluation and treatment or return to the ER if any new or worsening symptoms. Strict return precautions were also discussed at length. Patient voiced understanding and agreement with the plan. Patient is hemodynamically stable at the time of disposition. Dragon Disclaimer: Ayanna Disclaimer: This electronic medical record was generated, in whole or in part, using a voice recognition dictation system. Departure Departure Impression: Primary Impression: Dyspnea Qualified Codes: R06.00 - Dyspnea, unspecified Additional Impression: Person under investigation for COVID-19 Disposition: HOME / SELF CARE / HOMELESS Condition: GOOD Referrals: VINCE TAVERAS MD (PCP) Patient Instructions: Shortness of Breath Additional Instructions: You were seen in the emergency department for shortness of breath and fatigue. Your blood work was unremarkable. Your chest x-ray showed no acute findings. You are tested for COVID-19 in the emergency department and will be notified of those results when they become available in approximately 2 days. Please self isolate until you receive these results. It is possible that your shortness of breath is due to anxiety, follow-up with your primary care provider regarding medical management of your anxiety. I would advise you to contact your primary care provider upon discharge to set up a follow-up appointment for tomorrow. Your shortness of breath may be improved by the use of an albuterol inhaler, you being discharged home with a prescription for an albuterol inhaler, use this as directed. Return to the emergency department if you develop worsening of your shortness of breath, chest pain, intractable nausea or vomiting, high fevers refractory to treatment, dizziness or lightheadedness or any new or worsening concerns. Scripts Albuterol Sulfate (Proair Hfa) 8.5 Gm Hfa.aer.ad 2 PUFF IH PRN Q4-6HRS PRN for wheezing for 21 Days, #1 INHALER 0 Refills Prov: BRAIN YOUNG APRN 08/29/21 BRAIN YOUNG APRN Aug 29, 2021 14:53
--- NOTE | 2021-08-29 15:12 | RAD ---
EXAMINATION: Chest radiograph. VIEWS: Single AP view of the chest COMPARISON: 01/31/2018 INDICATION:66 years, Female, shortness of air. FINDINGS: Normal cardiomediastinal silhouette. No focal consolidation. No pleural effusion or pneumothorax. No acute osseous process. IMPRESSION: No acute cardiopulmonary process. Electronically signed by: Benji Nichols DO (08/29/2021 3:10 PM) [facility]
--- NOTE | 2021-08-29 15:17 | EKG ---
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
[2021-08-29 15:24] LABS: BASO % 1 % (0-3); EOS # 0.1 x10^3/uL (0.0-0.7); EOS % 3 % (0-3); HEMATOCRIT 41.2 % (36.0-47.0); HEMOGLOBIN 14.2 g/dL (12.0-15.5); LYMPH # 1.4 x10^3/uL (1.0-4.8); LYMPH % 33 % (24-48); MEAN CORPUSCULAR HEMOGLOBIN 35 pg (25-35); MEAN CORPUSCULAR HGB CONC 35 g/dL (31-37); MEAN CORPUSCULAR VOLUME 102 fL (79-100); MONO # 0.5 x10^3/uL (0.0-1.1); MONO % 12 % (0-9); NEUT # 2.1 x10^3/uL (1.8-7.7); NEUT % 51 % (31-73); PLATELET COUNT 301 x10^3/uL (140-400); RED BLOOD COUNT 4.05 x10^6/uL (3.50-5.40); RED CELL DISTRIBUTION WIDTH 12.7 % (11.5-14.5); WHITE BLOOD COUNT 4.2 x10^3/uL (4.0-11.0)
[2021-08-29 15:30] LABS: CALCIUM 8.9 mg/dL (8.5-10.1); GFR 55.8; POTASSIUM 4.3 mmol/L (3.5-5.1)
[2021-08-29 15:37] LABS: ALBUMIN 4.2 g/dL (3.4-5.0); ALBUMIN/GLOBULIN RATIO 1.2 (1.0-1.7); TOTAL BILIRUBIN 0.2 mg/dL (0.2-1.0); TOTAL PROTEIN 7.6 g/dL (6.4-8.2)
[2021-08-29] MEDS ORDERED: ALBU2.5V8 IH (15:58)
[2021-08-29 16:13] VITALS: BP 110/77
--- NOTE | 2021-08-30 16:05 | NUR ---
IP: Informed pt of negative covid test. Pt verbalized understanding.
== END 2021-08-29 16:25 | disposition home or self-care (01) ==
LOC: ER 14:20
DX: R06.02 Shortness of breath (principal); R07.81 Pleurodynia; R53.83 Other fatigue; K21.9 Gastro-esophageal reflux disease without esophagitis; F32.9 Major depressive disorder, single episode, unspecified; Z20.822 Contact with and (suspected) exposure to COVID-19; Z88.2 Allergy status to sulfonamides
CPT/HCPCS: 36415; 71045; 80053; 84484; 85025; 85379; 87426; 93005; 99285; U0003; U0005

== ENCOUNTER 2021-09-11 23:50 | Emergency (ER) | payer OTHER ==
[~2021-09-11] VITALS: Ht 170.2 cm; Wt 75.0 kg
[~2021-09-11 23:50] MED LIST changes: +ALBU2.5V8 IH
[2021-09-12 00:05] VITALS: BP 97/66
[2021-09-12] MEDS ORDERED: DEXAMETHASONE 4 MG TABLET PO ONE (00:30)
[2021-09-12] MEDS ORDERED: diphenhydrAMINE HCL 25 MG CAPSULE PO ONE ×2 (00:30→00:46)
[2021-09-12] MEDS ORDERED: FAMOTIDINE 20 MG TABLET. PO ONE (00:30)
[2021-09-12] MEDS ORDERED: METH4TAB2 PO (00:45)
--- NOTE | 2021-09-12 00:45 | PHYS DOC ---
Past Medical History Past Medical History: Depression, GERD, Other Additional Past Medical Histor: MAJOR DEPPRESSIVE DISORDER Past Surgical History: Tonsillectomy Smoking Status: Never Smoker Alcohol Use: None Drug Use: None General Adult EDM: Chief Complaint: OTHER COMPLAINTS HPI: HPI: 66 yo F past medical history of depression, anxiety and gastritis, presents to the ED with complaints of pruritic rash started yesterday over both of her forearms and now over both posterior legs, stating she had her Pfizer Covid booster on Thursday and had a similar rash after the initial Covid vaccine. Patient states this rash is the worst it has been. Rash was improved with a Med rol Dosepak previously. No history of anaphylaxis or angioedema. No desquamation or oral lesions. Patient cannot take Benadryl due to her psychiatric medications. Is allergic to sulfa meds. States her tetanus is up-to-date. Review of Systems: Review of Systems: Constitutional: Denies fever or chills. [] Eyes: Denies change in visual acuity. [] HENT: Denies nasal congestion or sore throat. [] Respiratory: Denies cough or shortness of breath. [] Cardiovascular: Denies chest pain or edema. [] GI: Denies abdominal pain, nausea, vomiting, bloody stools or diarrhea. [] : Denies dysuria. [] Musculoskeletal: Denies back pain or joint pain. [] Integument: Denies rash. [] Neurologic: Denies headache, focal weakness or sensory changes. [] Endocrine: Denies polyuria or polydipsia. [] Lymphatic: Denies swollen glands. [] Psychiatric: Denies depression or anxiety. [] Heart Score: C/O Chest Pain: No Risk Factors: Risk Factors: DM, Current or recent (<one month) smoker, HTN, HLP, family history of CAD, obesity. Risk Scores: Score 0 - 3: 2.5% MACE over next 6 weeks - Discharge Home Score 4 - 6: 20.3% MACE over next 6 weeks - Admit for Clinical Observation Score 7 - 10: 72.7% MACE over next 6 weeks - Early Invasive Strategies Current Medications: Current Medications Medications (Trade) Dose Ordered Sig/Sudeep Start Time Stop Time Status Last Admin Dose Admin Dexamethasone (Decadron) 10 mg 1X ONCE 09/12/21 00:30 09/12/21 00:31 DC 09/12/21 00:30 10 MG Diphenhydramine HCl (Benadryl) 25 mg 1X ONCE 09/12/21 00:30 09/12/21 00:31 DC 09/12/21 00:30 25 MG Famotidine (Pepcid) 20 mg 1X ONCE 09/12/21 00:30 12 00:31 DC 09/12/21 00:30 20 MG Allergies: Allergies: Allergies Coded Allergies Type Severity Reaction Last Updated Verified Sulfa (Sulfonamide Antibiotics) Allergy Intermediate Hives 06/29/19 Yes Physical Exam: PE: Constitutional: Well developed, well nourished, no acute distress, non-toxic appearance. HENT: Normocephalic, atraumatic, mucous membranes moist with no ulcers or lesions Eyes: EOMI, conjunctiva normal, no discharge. Neck: Normal range of motion, supple, Cardiovascular: S1/2 present, regular rhythm Lungs & Thorax: Speaking in full sentences, bilateral equal chest rise, no tachypnea or increased work of breathing Skin: Warm, dry, multiple excoriated lesions with minimal surrounding erythema over patient's forearms, arms and posterior calves, negative Nikolsky sign, no interdigital web lesions, no blisters, negative Nikolsky sign Extremities: No tenderness, no cyanosis, Neurologic: Alert and oriented X 3, normal motor function, normal sensory function, no focal deficits noted. [] Psychologic: Affect normal, judgement normal, mood normal. [] Current Patient Data: Vital Signs: Vital Signs Date Time Temp Pulse Resp B/P (MAP) Pulse Ox O2 Delivery O2 Flow Rate FiO2 09/12/21 00:05 97.2 88 13 97/66 (76) 100 Room Air 97.2 EKG: EKG: [] Radiology/Procedures: Radiology/Procedures: [] Course & Med Decision Making: Course & Med Decision Making Pertinent Labs and Imaging studies reviewed. (See chart for details) Concern for pruritic allergic reaction in a well-appearing, nontoxic female who is hemodynamically stable. No oral lesions or desquamation. Patient afebrile and hemodynamically stable. Dexamethasone and Pepcid given in the emergency department. Will prescribe Medrol Dosepak. No history of anaphylaxis or angioedema-has never needed an EpiPen. Will discharge home with strict ED return precautions were given for worsening rash, mucous membrane involvement, skin desquamation or fever. Encouraged urgent outpatient follow-up with PMD for wound check in 2 to 3 days. Life-threatening processes were considered but are low suspicion at this time, given history, physical exam and ED workup. Pt was educated on all prescription medications and adverse effects. All patient's questions were answered and pt was stable at time of discharge. Life/limb-threatening differential includes but is not limited to, erythema multiforme, alonso-lucho syndrome, toxic epidermal necrolysis, staphylococcal scalded skin syndrome, necrotizing fasciitis/myositis/cellulitis, purpura fulminans, heparin or warfarin induced skin necrosis, angioedema, anaphylaxis drug rash, disseminated intravascular coagulation, disseminated gonococcal disease, vasculitis, septicemia, petechial disorder or coagulopathy, viral exanthem, Kawasaki's disease or life-threatening burn requiring burn center management or escharotomy. I have spoken with the patient and/or caregivers. I explained the patient's condition, diagnoses and treatment plan based on the information available to me at this time. I have answered the patient and/or caregiver's questions and addressed any concerns. The patient and/or caregivers have a good understanding of patient's diagnosis, condition and treatment plan as can be expected at this point. Vital signs have been stable. Patient's condition is stable and appropriate for discharge from the emergency department. Patient will pursue further outpatient evaluation with primary care physician or other designated or consulting physician as outlined in the discharge instructions. The patient and/or caregivers are agreeable to this plan of care and follow-up instructions have been explained in detail. The patient and/or caregivers have received these instructions in written form and have expressed an understanding of the discharge instructions. The patient and/or caregivers are aware that any significant change of condition or worsening of symptoms should prompt immediate return to this or the closest emergency department or call to 911. Ayanna Disclaimer: Ayanna Disclaimer: This electronic medical record was generated, in whole or in part, using a voice recognition dictation system. Departure Departure Impression: Primary Impression: Allergic reaction Disposition: HOME / SELF CARE / HOMELESS Condition: STABLE Referrals: VINCE TAVERAS MD (PCP) Follow-up with your primary care physician in 2 to 3 days for skin check OR FOLLOW UP WITH FAMILY MEDICINE: [address], [address] [place] [address] Patient Instructions: Rash Additional Instructions: EMERGENCY DEPARTMENT GENERAL DISCHARGE INSTRUCTIONS Thank you for coming to [facility] Emergency Department (ED) today and trusting us with you care. We trust that you had a positive experience in our Emergency Department. If you wish to speak to the department management, you may call the Director at [phone]. YOUR FOLLOW UP INSTRUCTIONS ARE FOLLOWS: 1. Do you have a private Doctor? If you do not have a private doctor, please ask for a resource list of physicians or clinics that may be able to assist you with follow up care. 2. The Emergency Physicain has interpreted your x-rays. The X-Ray specialist will also review them. If there is a change in the findings, you will be notified in 48 hours when at all possible. 3. A lab test or culture has been done, your results will be reviewed and you will be notified if you need a change in treatment. ADDITIONAL INSTRUCTIONS AND INFORMATION: 1. Your care today has been supervised by a physician who is specially trained in emergency care. Many problems require more than one evaluation for a complete diagnosis and treatment. We recommend that you schedule your follow up appointment as recommended to ensure complete treatment of you illness or injury. If you are unable to obtain follow up care and continue to have a problem, or if your condition worsens, we recommend that you return to the ED. 2. We are not able to safely determine your condition over the phone nor are we able to give sound medical advice over the phone. For these safety reasons, if you call for medical advice we will ask you to come to the ED for further evaluation. 3. If you have any questions regarding these discharge instructions please call the ED at [phone]. SAFETY INFORMATION: In the interest of safety, wellness, and injury prevention; we encourage you to wear your sealbelt, if you smoke; quite smoking, and we encourage family to use a protective helmet for bicycling and other sporting events that present an increased risk for head injury. IF YOUR SYMPTOMS WORSEN OR NEW SYMPTOMS DEVELOP, OR YOU HAVE CONCERNS ABOUT YOUR CONDITION; OR IF YOUR CONDITION WORSENS WHILE YOU ARE WAITING FOR YOUR FOLLOW UP APPOINTMENT; EITHER CONTACT YOUR PRIMARY CARE DOCTOR, THE PHYSICIAN WHOSE NAME AND NUMBER YOU WERE GIVEN, OR RETURN TO THE ED IMMEDIATELY. Scripts Methylprednisolone (MEDROL) 4 Mg Tab.ds.pk 1 PKG PO UD for inflammation, #1 PKG Prov: LUCAS MANN DO 09/12/21 LUCAS MANN DO Sep 12, 2021 00:45
== END 2021-09-12 00:49 | disposition home or self-care (01) ==
LOC: ER 23:50
DX: T78.40XA Allergy, unspecified, initial encounter (principal); K21.9 Gastro-esophageal reflux disease without esophagitis; Z88.2 Allergy status to sulfonamides
CPT/HCPCS: 99283; Q0163